=== PATIENT | male | born 1970 | race Caucasian/White ===

== ENCOUNTER 2016-12-13 14:26 | Emergency (ER) | payer BC ==
[2016-12-13] MEDS ORDERED: Levofloxacin 750 MG IVPREMIX(* 750 MG/150 ML BAG IVPB ONE (14:36)
[2016-12-13] MEDS ORDERED: cefTRIAXone(*) 1 GM in NS 0.9% 50 ML* 50 ML IVPB ONE (14:36)
[2016-12-13] MEDS: NS 0.9% 1000 ML* 2,000 ML IV ONE ×2 (15:07→15:08)
[2016-12-13 15:23] LABS: Hematocrit 43 % (42-52); Hemoglobin 14.5 g/dl (14.0-18.0); Mean Corpuscular HGB Conc 34 g/dl (31-36); Mean Corpuscular Hemoglobin 28 pg (27-31); Mean Corpuscular Volume 83 fL (80-94); Mean Platelet Volume 8 um3 (7.4-10.4); Red Blood Count 5.18 10^6/ul (4.0-5.4); Red Cell Distribution Width 14 % (10.5-15); White Blood Count 5.9 10^3/ul (3.5-10.8)
[2016-12-13 15:42] LABS: Albumin 3.6 g/dL (3.2-5.2); BUN/Creatinine Ratio 15.5 (8-20); C Reactive Protein 57.12 mg/L (< 5.00); Calcium 8.9 mg/dL (8.6-10.3); EGFR African American 126.5 (>60); EGFR Non-African American 98.4 (>60); Globulin 3.3 g/dL (2-4); Potassium 3.6 mmol/L (3.5-5.0); Total Bilirubin 0.5 mg/dL (0.2-1.0); Total Protein 6.9 g/dL (6.4-8.9); Troponin I 0.01 ng/mL (<0.04)
[2016-12-13 16:41] VITALS: BP 138/86
[2016-12-13] MEDS ORDERED: NS 0.9% 1000 ML* 1,000 ML IV ONE (17:25)
[2016-12-13] MEDS ORDERED: Ondansetron INJ* 2 MG/ML VIAL IV ONE (17:26)
--- NOTE | 2016-12-13 19:10 | ED ---
Respiratory - HPI Summary HPI Summary: Patient was sent in by primary office Dr Higuera for recent illness of known LLL PNA. He was prescribed doxycyline and Ceftriaxone 2.5 days ago. He admits to PCP that he has been experiencing rigors x 5 days, fever, cough with without production and dehydration. PCP sent patient to ED for fluid repletion, soft BP 's and concern for worsening symptoms d/t diaphoresis in office earlier today. Patient states he feels slightly better today than yesterday, but is still coughing and spiking fevers. He is afebrile on arrival. Denies chest pain or pressure, denies urinary symptoms. He states he feels extremely dehydrated and is not eating much. He endorses nausea, but no vomiting. Denies constipation or diarrhea. He is diaphoretic on exam. He states he continue to have rigors, but they are intermittent. No rigors were witnessed on exam. - History of Current Complaint Chief Complaint: EDShortnessOfBreath Stated Complaint: SWEATING/SENT BY DR Johnson Seen by Provider: 12/13/16 14:37 Hx Obtained From: Patient Onset/Duration: Gradual Onset Timing: Constant Initial Severity: Moderate Current Severity: Moderate Pain Intensity: 2 Character: Wheezing, Cough (Nonproductive), Dyspnea at Rest Sputum Amount: None Aggravating Factor(s): Nothing Alleviating Factor(s): Antibiotics - has been taking for 2.5 days Associated Signs and Symptoms: Chest Pain with Cough, Dyspnea - Risk Factors Status Asthmaticus Risk Factors: Negative Pulmonary Embolism Risk Factors: Negative Cardiac Risk Factors: Negative Pseudomonas Risk Factors: Negative Tuberculosis Risk Factors: Negative - Allergy/Home Medications Allergies/Adverse Reactions: Allergies Allergy/AdvReac Type Severity Reaction Status Date / Time Penicillins [PCN] Allergy Hives Verified 12/13/16 14:34 PMH/Surg Hx/FS Hx/Imm Hx Previously Healthy: Yes Respiratory History: Reports: Hx Asthma Infectious Disease History: No Infectious Disease History: Denies: Traveled Outside the [place] in Last 30 Days - Social History Occupation: Employed Full-time Lives: With Family Alcohol Use: Rare Substance Use Type: Reports: None Hx Tobacco Use: No Smoking Status (MU): Never Smoked Tobacco Review of Systems Positive: Fever, Chills, Fatigue, Skin Diaphoresis Eyes: Negative Cardiovascular: Negative Positive: Shortness Of Breath, Cough Positive: Nausea Positive: no symptoms reported, see HPI Musculoskeletal: Negative Neurological: Negative Positive: Headache, Weakness Psychological: Normal All Other Systems Reviewed And Are Negative: Yes Physical Exam Triage Information Reviewed: Yes Vital Signs On Initial Exam: Initial Vitals Temp Pulse Resp BP Pulse Ox 99.9 F 82 16 154/99 97 12/13/16 14:27 12/13/16 14:27 12/13/16 14:27 12/13/16 14:27 12/13/16 14:27 Vital Signs Reviewed: Yes Appearance: Positive: Ill-Appearing Skin: Positive: Warm, Diaphoretic Eyes: Positive: Normal, AN, Conjunctiva Clear Neck: Positive: Supple, Nontender Respiratory/Lung Sounds: Positive: Rhonchi - LLL base, Wheezes Cardiovascular: Positive: Normal, Pulses are Symmetrical in both Upper and Lower Extremities Musculoskeletal: Positive: Normal, Strength/ROM Intact Neurological: Positive: Alert, Oriented to Person Place, Time, Speech Normal Psychiatric: Positive: Normal - Ramana Coma Scale Best Eye Response: 4 - Spontaneous Best Motor Response: 6 - Obeys Commands Best Verbal Response: 5 - Oriented Diagnostics - Vital Signs Vital Signs Temp Pulse Resp BP Pulse Ox 12/13/16 16:40 98.1 F 75 16 138/86 12/13/16 15:30 91 139/76 97 12/13/16 15:15 76 23 12/13/16 15:08 77 95 12/13/16 15:06 129/71 12/13/16 14:27 99.9 F 82 16 154/99 97 - Laboratory Lab Results: Lab Results 12/13/16 12/13/16 12/13/16 Range/Units 15:10 15:10 15:10 WBC 5.9 (3.5-10.8) 10^3/ul RBC 5.18 (4.0-5.4) 10^6/ul Hgb 14.5 (14.0-18.0) g/dl Hct 43 (42-52) % MCV 83 (80-94) fL MCH 28 (27-31) pg MCHC 34 (31-36) g/dl RDW 14 (10.5-15) % Plt Count 177 (150-450) 10^3/ul MPV 8 (7.4-10.4) um3 Neut % (Auto) 55.3 (38-83) % Lymph % (Auto) 31.7 (25-47) % [place] % (Auto) 9.1 H (1-9) % Eos % (Auto) 3.4 (0-6) % Baso % (Auto) 0.5 (0-2) % Absolute Neuts (auto) 3.2 (1.5-7.7) 10^3/ul Absolute Lymphs (auto) 1.9 (1.0-4.8) 10^3/ul Absolute Monos (auto) 0.5 (0-0.8) 10^3/ul Absolute Eos (auto) 0.2 (0-0.6) 10^3/ul Absolute Basos (auto) 0 (0-0.2) 10^3/ul Absolute Nucleated RBC 0 10^3/ul Nucleated RBC % 0 INR (Anticoag Therapy) 1.00 (0.89-1.11) APTT 35.0 (26.0-36.3) seconds Sodium 135 (133-145) mmol/L Potassium 3.6 (3.5-5.0) mmol/L Chloride 99 L (101-111) mmol/L Carbon Dioxide 30 (22-32) mmol/L Anion Gap 6 (2-11) mmol/L BUN 13 (6-24) mg/dL Creatinine 0.84 (0.67-1.17) mg/dL Est GFR ( Amer) 126.5 (>60) Est GFR (Non-Af Amer) 98.4 (>60) BUN/Creatinine Ratio 15.5 (8-20) Glucose 105 H (70-100) mg/dL Lactic Acid (0.5-2.0) mmol/L Calcium 8.9 (8.6-10.3) mg/dL Magnesium 2.0 (1.9-2.7) mg/dL Total Bilirubin 0.50 (0.2-1.0) mg/dL AST 41 H (13-39) U/L ALT 50 (7-52) U/L Alkaline Phosphatase 41 (34-104) U/L Troponin I 0.01 (<0.04) ng/mL C-Reactive Protein 57.12 H (< 5.00) mg/L B-Natriuretic Peptide ( - 100) pg/mL Total Protein 6.9 (6.4-8.9) g/dL Albumin 3.6 (3.2-5.2) g/dL Globulin 3.3 (2-4) g/dL Albumin/Globulin Ratio 1.1 (1-3) Lipase 20 (11.0-82.0) U/L 12/13/16 12/13/16 Range/Units 15:10 15:10 WBC (3.5-10.8) 10^3/ul RBC (4.0-5.4) 10^6/ul Hgb (14.0-18.0) g/dl Hct (42-52) % MCV (80-94) fL MCH (27-31) pg MCHC (31-36) g/dl RDW (10.5-15) % Plt Count (150-450) 10^3/ul MPV (7.4-10.4) um3 Neut % (Auto) (38-83) % Lymph % (Auto) (25-47) % [place] % (Auto) (1-9) % Eos % (Auto) (0-6) % Baso % (Auto) (0-2) % Absolute Neuts (auto) (1.5-7.7) 10^3/ul Absolute Lymphs (auto) (1.0-4.8) 10^3/ul Absolute Monos (auto) (0-0.8) 10^3/ul Absolute Eos (auto) (0-0.6) 10^3/ul Absolute Basos (auto) (0-0.2) 10^3/ul Absolute Nucleated RBC 10^3/ul Nucleated RBC % INR (Anticoag Therapy) (0.89-1.11) APTT (26.0-36.3) seconds Sodium (133-145) mmol/L Potassium (3.5-5.0) mmol/L Chloride (101-111) mmol/L Carbon Dioxide (22-32) mmol/L Anion Gap (2-11) mmol/L BUN (6-24) mg/dL Creatinine (0.67-1.17) mg/dL Est GFR ( Amer) (>60) Est GFR (Non-Af Amer) (>60) BUN/Creatinine Ratio (8-20) Glucose (70-100) mg/dL Lactic Acid 0.9 (0.5-2.0) mmol/L Calcium (8.6-10.3) mg/dL Magnesium (1.9-2.7) mg/dL Total Bilirubin (0.2-1.0) mg/dL AST (13-39) U/L ALT (7-52) U/L Alkaline Phosphatase (34-104) U/L Troponin I (<0.04) ng/mL C-Reactive Protein (< 5.00) mg/L B-Natriuretic Peptide 31 ( - 100) pg/mL Total Protein (6.4-8.9) g/dL Albumin (3.2-5.2) g/dL Globulin (2-4) g/dL Albumin/Globulin Ratio (1-3) Lipase (11.0-82.0) U/L Result Diagrams: 12/13/16 15:10 12/13/16 15:10 Lab Statement: Any lab studies that have been ordered have been reviewed, and results considered in the medical decision making process. Re-Evaluation - Re-Evaluation First Eval Change: Improved - patient feeling slightly improved after 2L fluids, IV abx Disposition - Course Course Of Treatment: Patient sent here from clinic with LLL PNA and concern for dehydration. 2L fluids given, with ceftriaxone and levaquin. Patient given zofran for nausea. Elevated CRP, otherwise WNL labs. WBC normal. Patient diaphoretic and hypotensive on arrival, which quickly improved with fluids and abx. Spoke with Dr Higuera who suggested possible admission for dehydration and IV abx. Dr Epps consulted. Feels patient is responding to outpatient abx d/t patient remaining afebrile, no WBC and not diaphoretic on exam. Patient now with 120/90 BP, afebrile and feeling improved. Supriya suggested if continues to improve, give 1L more of fluids and may DC home with patients agreeance. Spoke with patient who agreed he felt he could be DC'd home. DC home with prescription for zofran and close follow up with Dr. Higuera. Note given for work to return on Monday. 5 days off. - Differential Dx - Cardiopulmonary Differential Diagnoses - Cardiopulmonary: Other - Pneumonia, viral or bacterial , influenza - Diagnoses Provider Diagnoses: Pneumonia - Physician Notifications Instructed by Provider To: Have Pt Call For Appt. - Dr. Higuera Discharge - Discharge Plan Condition: Stable Disposition: HOME Prescriptions: Ondansetron TAB* [Zofran 4 MG Tab*] 4 mg PO Q6H PRN #10 tab MDD 4 PRN Reason: Nausea Patient Education Materials: Viral Pneumonia (ED), Bacterial Pneumonia (ED) Forms: *Work Release Referrals: Amber Higuera MD [Primary Care Provider] - Additional Instructions: Take zofran as needed for associated nausea. Tylenol 650mg three times daily for fever and discomfort. If worsening pain, shortness of breath, chest pain or cough develops, come back to ED. Drink plenty of fluids. If you feel you cannot get enough fluids, try to drink Gatorade or tomato juice. [place] diet to start: crackers, chicken noodle soup or rice. Rest.
== END 2016-12-13 18:28 | disposition home or self-care (01) ==
LOC: ED 14:26
DX: J18.9 Pneumonia, unspecified organism (principal); R06.02 Shortness of breath; R06.2 Wheezing; R05 Cough; R07.9 Chest pain, unspecified; R11.0 Nausea
CPT/HCPCS: 36415; 80053; 83605; 83690; 83735; 83880; 84484; 85025; 85610; 85730; 86140; 87040; 93005; 96374; 99282; J0696; J2405

== ENCOUNTER 2018-07-28 16:45 | Emergency (ER) | payer BC ==
[2018-07-28 16:53] VITALS: BP 137/86
[2018-07-28] MEDS ORDERED: DOXYcycline CAP(*) 100 MG PO ONE (18:31)
--- NOTE | 2018-07-28 18:43 | UC ---
General HPI - HPI Summary HPI Summary: tick on left side of lower back for 2-3 days---- - History of Current Complaint Chief Complaint: Tori Stated Complaint: TICK BITE Time Seen by Provider: 07/28/18 18:20 Hx Obtained From: Patient Onset/Duration: Sudden Onset, Lasting Days - 2-3, Still Present Timing: Constant Pain Intensity: 0 - Allergy/Home Medications Allergies/Adverse Reactions: Allergies Allergy/AdvReac Type Severity Reaction Status Date / Time Penicillins Allergy Hives Verified 07/28/18 16:53 Home Medications: Home Medications NK [No Home Medications Reported] 07/28/18 [History Confirmed 07/28/18] PMH/Surg Hx/FS Hx/Imm Hx Previously Healthy: Yes - Surgical History Surgical History: Yes Surgery Procedure, Year, and Place: thyroidectomy - Family History Known Family History: Positive: None - Social History Occupation: Employed Full-time Lives: With Family Alcohol Use: Occasionally Substance Use Type: None Smoking Status (MU): Never Smoked Tobacco Review of Systems Constitutional: Negative Skin: Other - tic left lower back Eyes: Negative ENT: Negative Respiratory: Negative Cardiovascular: Negative Gastrointestinal: Negative Genitourinary: Negative Motor: Negative Neurovascular: Negative Musculoskeletal: Negative Neurological: Negative Psychological: Negative Is Patient Immunocompromised?: No All Other Systems Reviewed And Are Negative: Yes Physical Exam Triage Information Reviewed: Yes Appearance: Well-Appearing, No Pain Distress, Well-Nourished Vital Signs: Initial Vital Signs Temp 97.0 F 07/28/18 16:51 Pulse 89 07/28/18 16:51 Resp 18 07/28/18 16:51 BP 137/86 07/28/18 16:51 Pulse Ox 98 07/28/18 16:51 Vital Signs Reviewed: Yes Eye Exam: Normal Eyes: Positive: Conjunctiva Clear ENT Exam: Normal ENT: Positive: Normal ENT inspection, Hearing grossly normal. Negative: Trismus , Muffled voice, Hoarse voice Dental Exam: Normal Neck exam: Normal Neck: Positive: Supple, Nontender Respiratory Exam: Normal Respiratory: Positive: Chest non-tender, No respiratory distress, No accessory muscle use Cardiovascular Exam: Normal Cardiovascular: Positive: RRR, Pulses Normal, Brisk Capillary Refill Musculoskeletal Exam: Normal Musculoskeletal: Positive: Strength Intact, ROM Intact, No Edema Neurological Exam: Normal Neurological: Positive: Alert Psychological Exam: Normal Skin: Positive: Other - tick attached left lower back Re-Evaluation - Re-Evaluation First Eval Change: Improved - Tick removed intact and alive patient tolerated well po doxycycline given Course/Dx - Course Course Of Treatment: dox 200 mg po times one, mild soap and water wash follow with pcp prn - Differential Dx - Multi-Symptom Provider Diagnoses: Tick removal Lyme post exposure Prevention Discharge - Sign-Out/Discharge Documenting (check all that apply): Patient Departure All imaging exams completed and their final reports reviewed: No Studies - Discharge Plan Condition: Stable Disposition: HOME Patient Education Materials: Lyme Disease (ED), Tick Bite (ED) Referrals: Amber Higuera MD [Primary Care Provider] - If Needed - Billing Disposition and Condition Condition: STABLE Disposition: Home
== END 2018-07-28 18:38 | disposition home or self-care (01) ==
LOC: UCEAST 16:45
DX: S30.860A Insect bite (nonvenomous) of lower back and pelvis, initial encounter (principal); W57.XXXA Bitten or stung by nonvenomous insect and other nonvenomous arthropods, initial encounter; Y92.9 Unspecified place or not applicable; Z88.0 Allergy status to penicillin
CPT/HCPCS: 99212; A9270-GY; G0463